=== PATIENT | female | born 1950 | race American Indian/Alaskan Native ===

== ENCOUNTER 2016-07-10 10:26 | Day surgery (SDC) | payer BC, OTHER ==
[~2016-07-10] VITALS: Ht 167.6 cm; Wt 86.0 kg
[~2016-07-10 10:26] MED LIST: ASCO10004 PO; ASPI-496 PO; CARV3.122 PO; CHOL100018 PO; FURO20TA3 PO; Ferrous Sulfate PO; INSU100V13 SQ; L.AC1CAP6 PO; LACT10SO28 PO; LEVO112T2 PO; MAGN54LI PO; OMEG1CAP12 PO; OMEP-110 PO; PREG75CA PO; SIMV40TA3 PO; VALS80TA3 PO
[2016-07-10] MEDS ORDERED: LACTATED RINGERS 1,000 ML IV SCH (11:12)
[2016-07-10 11:47] VITALS: BP 160/76
[2016-07-10 12:22] LABS: BLOOD UREA NITROGEN 43 mg/dL (7-18)
[2016-07-10 12:26] LABS: ASPARTATE AMINO TRANSFERASE 32 U/L (15-37)
[2016-07-10] MEDS ORDERED: PROPOFOL 10 MG/ML, 50ML ONE (12:50)
[2016-07-10] MEDS ORDERED: OXYcodone 5 MG/5 ML ORAL.SOL UDC PO PRN (13:00)
[2016-07-10] MEDS ORDERED: LABETALOL 5MG/ML, 20ML IV PRN (13:00)
[2016-07-10] MEDS ORDERED: FENTANYL PF 100 MCG/2ML IV PRN (13:00)
[2016-07-10] MEDS ORDERED: hydrALAzine 20 MG/ML, 1ML IV PRN (13:00)
[2016-07-10] MEDS ORDERED: HYDROmorphone 1 MG/ML, 1ML IV PRN (13:00)
[2016-07-10] MEDS ORDERED: ONDANSETRON 2MG/ML, 2ML IVPush PRN (13:00)
[2016-07-10] MEDS ORDERED: FENTANYL PF 100 MCG/2ML ONE (13:41)
[2016-07-10] MEDS ORDERED: OXYcodone 5 MG/5 ML ORAL.SOL UDC ONE (13:42)
== END 2016-07-10 14:55 | disposition home or self-care (01) ==
LOC: OUT 10:26
PROVIDERS: ATTEND Internal Medicine Gastroenterology
DX: I85.00 Esophageal varices without bleeding (principal); K76.6 Portal hypertension; K31.89 Other diseases of stomach and duodenum; I25.10 Atherosclerotic heart disease of native coronary artery without angina pectoris; I25.2 Old myocardial infarction; E11.22 Type 2 diabetes mellitus with diabetic chronic kidney disease; I12.9 Hypertensive chronic kidney disease with stage 1 through stage 4 chronic kidney disease, or unspecified chronic kidney disease; N18.9 Chronic kidney disease, unspecified; Z95.5 Presence of coronary angioplasty implant and graft; Z86.73 Personal history of transient ischemic attack (TIA), and cerebral infarction without residual deficits; Z90.49 Acquired absence of other specified parts of digestive tract; Z90.710 Acquired absence of both cervix and uterus
CPT/HCPCS: 36415; 43244; 80053; 82962; 85025; 85610; 85730; 93005; J2704; J3010; J7120

== ENCOUNTER 2016-12-03 10:29 | Day surgery (SDC) | payer BC ==
[~2016-12-03] VITALS: Ht 167.6 cm; Wt 89.9 kg
[~2016-12-03 10:29] MED LIST changes: +CHOL100012 PO; -CHOL100018 PO; -OMEG1CAP12 PO; +OMEG1CAP23 PO
[2016-12-03 11:05] VITALS: BP 113/68
[2016-12-03] MEDS ORDERED: LACTATED RINGERS 1,000 ML IV SCH (11:08)
[2016-12-03] MEDS ORDERED: INSU100C SQ-INSULIN (11:15)
[2016-12-03] MEDS ORDERED: BACI1TAB2 PO (11:15)
[2016-12-03] MEDS ORDERED: LEVO88TA4 PO (11:15)
[2016-12-03] MEDS ORDERED: VENL37.52 PO (11:15)
[2016-12-03] MEDS ORDERED: LIDOCAINE 1%, 2ML SQ PRN (11:30)
[2016-12-03] MEDS ORDERED: LABETALOL 5MG/ML, 20ML IV PRN (12:30)
[2016-12-03] MEDS ORDERED: FENTANYL PF 100 MCG/2ML IV PRN (12:30)
[2016-12-03] MEDS ORDERED: HYDROmorphone 1 MG/ML, 1ML IV PRN (12:30)
[2016-12-03] MEDS ORDERED: ONDANSETRON 2MG/ML, 2ML IVPush PRN (12:30)
[2016-12-03] MEDS ORDERED: PROPOFOL 10 MG/ML, 20ML ONE (15:45)
[2016-12-03] MEDS ORDERED: ONDANSETRON 2MG/ML, 2ML ONE (15:45)
== END 2016-12-03 15:05 ==
LOC: OUT 10:29
PROVIDERS: ATTEND Internal Medicine
DX: I85.00 Esophageal varices without bleeding (principal); K74.60 Unspecified cirrhosis of liver; K31.7 Polyp of stomach and duodenum; K76.6 Portal hypertension; K31.89 Other diseases of stomach and duodenum; E03.9 Hypothyroidism, unspecified; E11.9 Type 2 diabetes mellitus without complications; Z86.73 Personal history of transient ischemic attack (TIA), and cerebral infarction without residual deficits
CPT/HCPCS: 43244; 43255; 82962; J2405; J2704; J7120

== ENCOUNTER 2020-09-18 08:08 | Day surgery (SDC) | payer BC ==
[~2020-09-18] VITALS: Ht 165.1 cm; Wt 82.7 kg
[~2020-09-18 08:08] MED LIST changes: +AMLO2.5T5 PO; +ASCO100018 PO; -ASCO10004 PO; +BACI1TAB2 PO; +CARV12.52 PO; +FOLI0.8T3 PO; +INSU100C SQ-INSULIN; +INSU100I28 SC; +IRON150C3 PO; +LEVO88TA4 PO; +PANT40TA3 PO; +RIFA550T4 PO; +ROSU20TA2 PO; +SEVE800T8 PO; +SILV20CR13 TD; +SIMV40TA20 PO; -SIMV40TA3 PO; +VENL37.52 PO
[2020-09-18 08:51] VITALS: BP 116/74
[2020-09-18] MEDS ORDERED: CHLORHEXIDINE 15 ML UDC PO ONE (09:00)
[2020-09-18] MEDS: SODIUM CHLORIDE 0.9% 1,000 ML IV SCH ×2 (09:03→09:07)
[2020-09-18] MEDS ORDERED: PROPOFOL 10 MG/ML, 20ML ONE (09:15)
[2020-09-18] MEDS ORDERED: PROMETHAZINE 25 MG/ML, 1ML IVPush PRN (09:30)
[2020-09-18] MEDS ORDERED: LABETALOL 5MG/ML, 20ML IV PRN (09:30)
[2020-09-18] MEDS ORDERED: ACETAMINOPHEN 325 MG TABLET PO PRN (09:30)
[2020-09-18] MEDS ORDERED: hydrALAzine 20 MG/ML, 1ML IV PRN (09:30)
[2020-09-18] MEDS ORDERED: MEPERIDINE/PF 25MG/0.5ML IVPush PRN (09:30)
[2020-09-18] MEDS ORDERED: PROMETHAZINE 25 MG SUPP PR PRN (09:30)
[2020-09-18] MEDS ORDERED: ONDANSETRON 2MG/ML, 2ML IVPush PRN (09:30)
[2020-09-18] MEDS ORDERED: LORazepam 2 MG/ML, 1ML IVPush PRN (09:30)
[2020-09-18] MEDS ORDERED: METHOCARBAMOL 1,000 MG in DEXTROSE 5% 100 ML IV PRN (09:30)
[2020-09-18] MEDS ORDERED: METOPROLOL 1 MG/ML, 5ML IV PRN (09:30)
[2020-09-18] MEDS ORDERED: OXYcodone 5 MG/5 ML ORAL.SOL UDC PO PRN (09:30)
[2020-09-18] MEDS ORDERED: FENTANYL PF 100 MCG/2ML IV PRN (09:30)
== END 2020-09-18 11:30 | disposition home or self-care (01) ==
LOC: OUT 08:08
PROVIDERS: ATTEND Internal Medicine
DX: K74.60 Unspecified cirrhosis of liver (principal); I85.10 Secondary esophageal varices without bleeding; K76.6 Portal hypertension; K31.89 Other diseases of stomach and duodenum; E11.22 Type 2 diabetes mellitus with diabetic chronic kidney disease; I13.2 Hypertensive heart and chronic kidney disease with heart failure and with stage 5 chronic kidney disease, or end stage renal disease; I50.9 Heart failure, unspecified; N18.6 End stage renal disease; I25.10 Atherosclerotic heart disease of native coronary artery without angina pectoris; Z79.899 Other long term (current) drug therapy; Z99.2 Dependence on renal dialysis
CPT/HCPCS: 43235; 80047; 82962; J7030; J2704